=== PATIENT | female | born 1970 | race Hispanic/Latino ===

== ENCOUNTER 2022-06-16 07:59 | Day surgery (SDC) | payer OTHER ==
[~2022-06-16] VITALS: Ht 149.9 cm; Wt 57.2 kg
[~2022-06-16 07:59] MED LIST: ADVIL MIGRAI200 M1 PO; BACTRIM DS1 TAB OR; BL IBUPROFEN200 MG PO; CELEBREX100 M1 PO; IRON18 M1 OR; LISINOP/HCTZ1 TA2 PO; LOTENSIN HCT1 TAB PO; METOPROLOL SUCC25 MG PO
[2022-06-16 10:48] VITALS: BP 120/74
== END 2022-06-16 11:06 | disposition home or self-care (01) | DRG 395 ==
LOC: ENDO 07:59 → ORM 09:00 → ENDO 10:00 → ORM 10:20 → ENDO 11:06
PROVIDERS: ATTEND Surgery
PROC: 0DJD8ZZ Inspection of Lower Intestinal Tract, Via Natural or Artificial Opening Endoscopic (ICD-10-PCS; principal; 2022-06-16)
DX: K64.8 Other hemorrhoids (principal); I10 Essential (primary) hypertension